=== PATIENT | female | born 1975 | race Caucasian/White ===

== ENCOUNTER → 2019-10-09 | Outpatient (CLI) | payer OTHER ==
[2019-10-09 19:00] LABS: Albumin 4.1 g/dL (3.80-4.90); Albumin/Globulin Ratio 1.17 (1.60-3.17); Bilirubin, Conjugated 1.3 mg/dL (0.20-0.40); Bilirubin,Unconjugated 0.5 mg/dL; Folate, Serum 12.2 ng/mL; Globulin 3.5 g/dL (1.6-3.3); Total Bilirubin 1.8 mg/dL (0.2-1.2); Total Protein 7.6 g/dL (6.2-8.2)
[2019-10-09 19:47] LABS: Hepatitis A Antibody IgM Non-Reactive (Non-Reactive); Hepatitis B Core IgM Non-Reactive (Non-Reactive); Hepatitis B Surface Antigen Non-Reactive (Non-Reactive); Hepatitis C IgG Antibody Non-Reactive (Non-Reactive)
== END | disposition home or self-care (01) ==
LOC: LABWHC1 11:03
PROVIDERS: ATTEND Internal Medicine
DX: N94.5 Secondary dysmenorrhea (principal); R19.03 Right lower quadrant abdominal swelling, mass and lump; R10.11 Right upper quadrant pain; F10.11 Alcohol abuse, in remission
CPT/HCPCS: 36415; 80074; 80076; 82607; 82746; 82947; 84443

== ENCOUNTER → 2019-10-20 | Outpatient (CLI) | payer OTHER ==
--- NOTE | 2019-10-20 09:25 | US ---
EXAMINATION TYPE: US abdomen complete DATE OF EXAM: 10/20/2019 COMPARISON: NONE CLINICAL HISTORY: R10.84 ABN PAIN. EXAM MEASUREMENTS: Liver Length: 14.7 cm Gallbladder Wall: 0.3 cm CBD: 0.3 cm Spleen: 11.1 cm Right Kidney: 12.5 x 4.3 x 5.8 cm Left Kidney: 12.4 x 5.2 x 6.6 cm Pancreas: wnl Liver: wnl Gallbladder: layering sludge noted Evidence for sonographic Baca's sign: No CBD: wnl Spleen: wnl Right Kidney: No hydronephrosis or masses seen Left Kidney: No hydronephrosis or masses seen Upper IVC: wnl Abd Aorta: wnl The liver is homogenous. The intrahepatic portion of the IVC and visualized abdominal aorta are with in normal limits. There is mobile nonshadowing gallbladder sludge and/or small stones. Common bile duct is unremarkable. The visualized portions of the pancreas are homogenous. The spleen is unremar kable. Kidneys are symmetric and free of hydronephrosis. No renal lesions are seen. IMPRESSION: Small stones and/or gallbladder sludge without secondary ultrasound evidence for acute ch olecystitis otherwise unremarkable study.
== END | disposition home or self-care (01) ==
LOC: RADUSWWP 08:16
PROVIDERS: ATTEND Internal Medicine
DX: R93.5 Abnormal findings on diagnostic imaging of other abdominal regions, including retroperitoneum (principal); R10.84 Generalized abdominal pain; R94.5 Abnormal results of liver function studies
CPT/HCPCS: 76700

== ENCOUNTER → 2020-06-24 | Outpatient (CLI) | payer OTHER ==
--- NOTE | 2020-06-24 10:10 | US ---
EXAMINATION TYPE: US abdomen complete DATE OF EXAM: 06/24/2020 COMPARISON: NONE CLINICAL HISTORY: K74.60 UNSPECIFIED CIRRHOSIS OF LIVER. Follow up. GB removed. EXAM MEASUREMENTS: Liver Length: 15.7 cm CBD: 0.7 cm Spleen: 12.4 cm Right Kidney: 11.9 x 5.5 x 4.4 cm Left Kidney: 12.4 x 4.9 x 5.1 cm Pancreas: appears echogenic in appearance Liver: Appears echogenic and coarse in appearance Gallbladder: Surgically absent Evidence for sonographic Baca's sign: No CBD: wnl Spleen: upper limits of normal in size Right Kidney: No hydronephrosis or masses seen Left Kidney: No hydronephrosis or masses seen Upper IVC: wnl Abd Aorta: No AAA visualized IMPRESSION: 1. Abdomen ultrasound appears unremarkable.
== END | disposition home or self-care (01) ==
LOC: RADUSWWP 07:40
PROVIDERS: ATTEND Internal Medicine
DX: K74.60 Unspecified cirrhosis of liver (principal)
CPT/HCPCS: 76700

== ENCOUNTER 2020-06-28 09:27 | Day surgery (SDC) | payer OTHER ==
[2020-06-23 14:08] VITALS: BMI 20.1
[~2020-06-28 09:27] MED LIST: LACTATED RINGERS 1,000 ML IV SCH; LIDOCAINE 1% (10MG/ML) FOR IV START INTRADERMA PRN
[2020-06-28 10:05] VITALS: TEMP 98.4
[2020-06-28] MEDS ORDERED: PROPOFOL 10 MG/ML 20 ML VIAL IV ONE (10:59)
--- NOTE | 2020-06-28 11:57 | P.PCN ---
Date of Procedure: 06/28/20 Description of Procedure: Brief history: Patient is a pleasant 44 female presents for outpatient EGD and colonoscopy for evaluation of cirrhosis, melena, blood per rectum. Patient has a known history of decompensated alcoholic cirrhosis. She has been sober since November 2019. She takes diuretic therapy and recently underwent ultrasound of the abdomen which was negative. She reports intermittent bright red blood per rectum. No prior upper GI bleed however. Procedure performed: Esophagogastroduodenoscopy with biopsy Colonoscopy Estimated blood loss: Minimal. Preoperative diagnosis: Cirrhosis, melena, blood per rectum Anesthesia: MAC Procedure: After informed consent was obtained from the patient was brought into the endoscopy unit and IV sedation was administered by anesthesia under continuous monitoring. Initially upper endoscopy was done. The Olympus GF 190 video endoscope was inserted into the mouth and esophagus intubated without any difficulty and was gradually advanced into the stomach and duodenum and carefully examined. The bulb and second part of the duodenum appeared normal and biopsies. The scope was then withdrawn into the stomach adequately insufflated with air and upon careful examination the antrum and body, cardia and fundus appeared normal, with mild punctate erythema throughout the stomach consistent with mild portal hypertensive gastropathy with biopsies taken of the antrum and body . The scope was then withdrawn into the esophagus. The GE junction was located at 40 cm to the incisors. It appeared regular with no erythema erosions or ulcerations. Rest of the esophagus appeared normal. Patient tolerated the procedure well. At this time the patient continued to remain sedation. Initial digital rectal examination was normal. Olympus CF 190 video colonoscope was then inserted into the rectum and gradually advanced to the cecum without any difficulty. Careful examination was performed as the scope was gradually being withdrawn. The prep was fair with liquid stool throughout the colon which was lavaged and suctioned. The cecum, ascending colon, transverse colon, descending colon, sigmoid colon and rectum appeared normal. Large pedunculated 17 mm sigmoid polyp was removed with hot snare polypectomy approximately 27 cm from the anal verge. Retroflexion was performed in the rectum and no lesions were noted. Patient tolerated the procedure well. Impression: 1. Mild portal hypertensive gastropathy. Biopsies of the duodenum, antrum and body. No varices noted. 2. Large pedunculated sigmoid polyp removed with hot snare polypectomy. Otherwise normal-appearing colon from rectum to cecum. Recommendations: Findings of this examination were discussed with the patient as well as her . Okay to resume diet. Okay to resume medications. Await pathology from polypectomy and biopsies. Repeat EGD in 2 years for variceal screening and colonoscopy in 3 years or high risk colon polyp pending pathology from polypectomy.
[2020-06-28 12:21] VITALS: BP 103/57; PULSE 80; RESP 16
== END 2020-06-28 12:43 | disposition home or self-care (01) ==
LOC: ORWHC2ENDO 09:27
PROVIDERS: ATTEND Internal Medicine
DX: K29.50 Unspecified chronic gastritis without bleeding (principal); C18.7 Malignant neoplasm of sigmoid colon; K70.30 Alcoholic cirrhosis of liver without ascites; F41.9 Anxiety disorder, unspecified; K76.6 Portal hypertension; K31.89 Other diseases of stomach and duodenum; Z98.51 Tubal ligation status; Z98.890 Other specified postprocedural states; Z79.891 Long term (current) use of opiate analgesic; Z79.899 Other long term (current) drug therapy
CPT/HCPCS: 81025; 88305; 84703; 45385; 43239; J2704

== ENCOUNTER 2020-07-07 19:32 | Observation (INO) | payer OTHER ==
[2020-07-07] MEDS ORDERED: SODIUM CHLORIDE 0.9% 1,000 ML IV STA (20:32)
[2020-07-07 21:18] LABS: ALT 39 U/L (4-34); AST 56 U/L (14-36); African American GFR (CKD) >90 (>60 ml/min/1.73 sqM); Albumin 4.4 g/dL (3.5-5.0); Alkaline Phosphatase 142 U/L (38-126); Anion Gap 12 mmol/L; Blood Urea Nitrogen 11 mg/dL (7-17); Calcium 10.4 mg/dL (8.4-10.2); Carbon Dioxide 22 mmol/L (22-30); Chloride 103 mmol/L (98-107); Glucose 126 mg/dL (74-99); Non-African American GFR(CKD) >90 (>60 ml/min/1.73 sqM); Sodium 137 mmol/L (137-145); Total Bilirubin 1.2 mg/dL (0.2-1.3); Total Protein 8.3 g/dL (6.3-8.2)
[2020-07-07 21:21] LABS: Basophils % (A) 0 %; Eosinophils # (A) 0.3 k/uL (0-0.7); Eosinophils % (A) 2 %; HCT 38.5 % (34.0-46.0); HGB 12.9 gm/dL (11.4-16.0); Lymphocytes # (A) 3.3 k/uL (1.0-4.8); Lymphocytes % (A) 27 %; MCH 31.4 pg (25.0-35.0); MCHC 33.5 g/dL (31.0-37.0); MCV 93.5 fL (80.0-100.0); Monocytes # (A) 0.8 k/uL (0-1.0); Monocytes % (A) 6 %; Neutrophils # (A) 7.8 k/uL (1.3-7.7); Neutrophils % (A) 63 %; Platelet Count 293 k/uL (150-450); RBC 4.11 m/uL (3.80-5.40); WBC 12.4 k/uL (3.8-10.6)
--- NOTE | 2020-07-07 21:48 | ED ---
GI Bleed HPI - General Chief complaint: GI Bleed Stated complaint: rectal bleed Time Seen by Provider: 07/07/20 20:22 Source: patient Mode of arrival: ambulatory Limitations: no limitations - History of Present Illness Initial comments: 44-year-old male presents to the emergency department with a chief complaint of a GI bleed. Patient reports about 9 days ago she had a colonoscopy and was found to have precancerous polyps. Patient reports she spoke to her GI specialist who advised to come for follow-up. Patient reports otherwise she has been doing well after the procedure. However, about 2 hours prior to arrival the patient noticed hematochezia. States she had multiple bouts of this. Station is going to the bathroom multiple times per hour. She feels like she is having diarrhea but this is profuse bleeding. She denies any abdominal pain and feels like her stomach is rumbling. Denies any chest pain back pain shortness of breath. Denies vaginal or urinary symptoms. - Related Data Home Medications Medication Instructions Recorded Confirmed Furosemide [Lasix] 40 mg PO BID 06/23/20 06/23/20 Lactulose 20 gm PO DAILY 06/23/20 06/23/20 Multivitamins, Thera [Multivitamin 1 tab PO DAILY 06/23/20 06/23/20 (formulary)] Spironolactone [Aldactone] 50 mg PO QAM 06/23/20 06/23/20 Zolpidem [Ambien] 5 mg PO HS PRN 06/23/20 06/28/20 diazePAM [Valium] 5 mg PO DIRECTED PRN 06/23/20 06/28/20 traMADol HCL [Ultram] 50 mg PO Q6HR PRN 06/23/20 06/28/20 Allergies Allergy/AdvReac Type Severity Reaction Status Date / Time No Known Allergies Allergy Verified 06/28/20 10:05 Review of Systems ROS Statement: Those systems with pertinent positive or pertinent negative responses have been documented in the HPI. ROS Other: All systems not noted in ROS Statement are negative. Past Medical History Past Medical History: No Reported History Additional Past Medical History / Comment(s): hx of blood in stool, states "liver issues" from alchohol use, hx of ascites and aspiration of 2L of fluid History of Any Multi-Drug Resistant Organisms: None Reported Past Surgical History: Breast Surgery, Tubal Ligation, Uterine Ablation Additional Past Surgical History / Comment(s): breast implants, hemorrhoidectomy, cystocele, colonoscopy with Polyp removal. Past Anesthesia/Blood Transfusion Reactions: Postoperative Nausea & Vomiting (PONV) Additional Past Anesthesia/Blood Transfusion Reaction / Comment(s): PONV only happened once after implants Past Psychological History: Anxiety, Depression Smoking Status: Former smoker Past Alcohol Use History: None Reported Past Drug Use History: Marijuana - Past Family History Mother Family Medical History: No Reported History General Exam Limitations: no limitations General appearance: alert, in no apparent distress Head exam: Present: atraumatic, normocephalic, normal inspection Eye exam: Present: normal appearance, PERRL, EOMI Pupils: Present: normal accommodation ENT exam: Present: normal exam, normal oropharynx, mucous membranes moist Neck exam: Present: normal inspection, full ROM. Absent: tenderness Respiratory exam: Present: normal lung sounds bilaterally. Absent: respiratory distress Cardiovascular Exam: Present: regular rate, normal rhythm, normal heart sounds GI/Abdominal exam: Present: soft. Absent: distended, tenderness, guarding, rebound Extremities exam: Present: normal inspection, full ROM. Absent: tenderness Back exam: Present: normal inspection, full ROM. Absent: tenderness Neurological exam: Present: alert, oriented X3, normal gait Psychiatric exam: Present: normal affect, normal mood Skin exam: Present: warm, dry, intact, normal color Course Vital Signs 07/07/20 07/07/20 07/07/20 19:41 21:15 21:20 Temperature 98.9 F 98.9 F Pulse Rate 114 H 110 H Respiratory 18 18 Rate Blood Pressure 160/87 129/88 O2 Sat by Pulse 100 100 99 Oximetry Procedures - [facility] Protocol (Time Out) Nurse: Martha Galarza Medical Decision Making - Medical Decision Making 44-year-old female presents to the emergency department with a chief complaint of rectal bleeding. On physical examination, no lower abdominal tenderness. CBC shows no signs of anemia. Lactate of 3.2. Troponin is negative. EKG showing sinus rhythm and no significant ST changes. Type and screen pending. Patient will be admitted for further medical management and consultation to GI. Patient is otherwise well-appearing with stable vitals. I spoke with Azucena Tavares NP who will admit for . Case discussed with Dr. Torres. GI on consult - Lab Data Result diagrams: 07/07/20 20:32 07/07/20 20:32 Lab Results 07/07/20 07/07/20 07/07/20 Range/Units 20:32 20:32 20:32 WBC 12.4 H (3.8-10.6) k/uL RBC 4.11 (3.80-5.40) m/uL Hgb 12.9 (11.4-16.0) gm/dL Hct 38.5 (34.0-46.0) % MCV 93.5 (80.0-100.0) fL MCH 31.4 (25.0-35.0) pg MCHC 33.5 (31.0-37.0) g/dL RDW 14.0 (11.5-15.5) % Plt Count 293 (150-450) k/uL MPV 8.0 Neutrophils % 63 % Lymphocytes % 27 % Monocytes % 6 % Eosinophils % 2 % Basophils % 0 % Neutrophils # 7.8 H (1.3-7.7) k/uL Lymphocytes # 3.3 (1.0-4.8) k/uL Monocytes # 0.8 (0-1.0) k/uL Eosinophils # 0.3 (0-0.7) k/uL Basophils # 0.0 (0-0.2) k/uL APTT 23.9 (22.0-30.0) sec Sodium 137 (137-145) mmol/L Potassium 3.0 L (3.5-5.1) mmol/L Chloride 103 (98-107) mmol/L Carbon Dioxide 22 (22-30) mmol/L Anion Gap 12 mmol/L BUN 11 (7-17) mg/dL Creatinine 0.55 (0.52-1.04) mg/dL Est GFR (CKD-EPI)AfAm >90 (>60 ml/min/1.73 sqM) Est GFR (CKD-EPI)NonAf >90 (>60 ml/min/1.73 sqM) Glucose 126 H (74-99) mg/dL Plasma Lactic Acid Rob (0.7-2.0) mmol/L Calcium 10.4 H (8.4-10.2) mg/dL Total Bilirubin 1.2 (0.2-1.3) mg/dL AST 56 H (14-36) U/L ALT 39 H (4-34) U/L Alkaline Phosphatase 142 H (38-126) U/L Troponin I (0.000-0.034) ng/mL Total Protein 8.3 H (6.3-8.2) g/dL Albumin 4.4 (3.5-5.0) g/dL 07/07/20 07/07/20 Range/Units 20:32 20:32 WBC (3.8-10.6) k/uL RBC (3.80-5.40) m/uL Hgb (11.4-16.0) gm/dL Hct (34.0-46.0) % MCV (80.0-100.0) fL MCH (25.0-35.0) pg MCHC (31.0-37.0) g/dL RDW (11.5-15.5) % Plt Count (150-450) k/uL MPV Neutrophils % % Lymphocytes % % Monocytes % % Eosinophils % % Basophils % % Neutrophils # (1.3-7.7) k/uL Lymphocytes # (1.0-4.8) k/uL Monocytes # (0-1.0) k/uL Eosinophils # (0-0.7) k/uL Basophils # (0-0.2) k/uL APTT (22.0-30.0) sec Sodium (137-145) mmol/L Potassium (3.5-5.1) mmol/L Chloride (98-107) mmol/L Carbon Dioxide (22-30) mmol/L Anion Gap mmol/L BUN (7-17) mg/dL Creatinine (0.52-1.04) mg/dL Est GFR (CKD-EPI)AfAm (>60 ml/min/1.73 sqM) Est GFR (CKD-EPI)NonAf (>60 ml/min/1.73 sqM) Glucose (74-99) mg/dL Plasma Lactic Acid Rob 3.2 H* (0.7-2.0) mmol/L Calcium (8.4-10.2) mg/dL Total Bilirubin (0.2-1.3) mg/dL AST (14-36) U/L ALT (4-34) U/L Alkaline Phosphatase (38-126) U/L Troponin I <0.012 (0.000-0.034) ng/mL Total Protein (6.3-8.2) g/dL Albumin (3.5-5.0) g/dL - EKG Data EKG Comments: Sinus tachycardia Ventricular rate 103, KS 130, QRS 86, QTC 458. Disposition Clinical Impression: Hematochezia Disposition: ADMITTED IP TO THIS HOSP Condition: Stable Is patient prescribed a controlled substance at d/c from ED?: No Referrals: Bradley Roberto MD [Primary Care Provider] - 1-2 days Time of Disposition: 22:12
[2020-07-07] MEDS ORDERED: ACETAMINOPHEN TAB 325 MG TAB PO PRN (22:07)
[2020-07-07] MEDS ORDERED: MORPHINE SULFATE 4 MG/ML SYRINGE IV PRN (22:07)
[2020-07-07] MEDS ORDERED: NALOXONE 0.4 MG/ML 1 ML VIAL IV PRN (22:07)
[2020-07-07] MEDS ORDERED: LORazepam 2 MG/ML INJ IV PRN (22:07)
[2020-07-07] MEDS ORDERED: traMADol 50 MG TAB PO PRN (22:07)
[2020-07-07] MEDS ORDERED: ONDANSETRON 4 MG/2 ML VIAL IVP PRN (22:07)
[2020-07-07] MEDS ORDERED: diazePAM 5 MG TAB PO STA (23:34)
[2020-07-07] MEDS: SODIUM CHLORIDE 0.9% 1,000 ML IV SCH (23:40)
[2020-07-08 01:40] VITALS: RESP 16
[2020-07-08 09:38] LABS: HCT 28.6 % (34.0-46.0); HGB 10.2 gm/dL (11.4-16.0); MCH 33.2 pg (25.0-35.0); MCHC 35.5 g/dL (31.0-37.0); MCV 93.4 fL (80.0-100.0); Mean Platelet Volume 7.7; RBC 3.06 m/uL (3.80-5.40); RDW 13.6 % (11.5-15.5); WBC 5.4 k/uL (3.8-10.6)
[2020-07-08 09:47] LABS: ALT 29 U/L (4-34); AST 34 U/L (14-36); African American GFR (CKD) >90 (>60 ml/min/1.73 sqM); Alkaline Phosphatase 99 U/L (38-126); Anion Gap 3 mmol/L; Blood Urea Nitrogen 10 mg/dL (7-17); Calcium 9.7 mg/dL (8.4-10.2); Carbon Dioxide 25 mmol/L (22-30); Chloride 110 mmol/L (98-107); Globulin 2.9 g/dL; Glucose 91 mg/dL (74-99); Non-African American GFR(CKD) >90 (>60 ml/min/1.73 sqM); Potassium 3.9 mmol/L (3.5-5.1); Sodium 138 mmol/L (137-145); Total Bilirubin 1.3 mg/dL (0.2-1.3); Total Protein 5.9 g/dL (6.3-8.2)
[2020-07-08 10:30] LABS: Platelet Count 139 k/uL (150-450)
[2020-07-08] MEDS ORDERED: NA PHOS,M-B/NA PHOS,DI-BA 133 ML ENEMA RECTAL STA (10:58)
[2020-07-08] MEDS ORDERED: NA PHOS,M-B/NA PHOS,DI-BA 133 ML ENEMA RECTAL ONE (11:45)
[2020-07-08] MEDS: SODIUM CHLORIDE 0.9% 1,000 ML IV SCH (12:02)
[2020-07-08] MEDS ORDERED: PROPOFOL 10 MG/ML 20 ML VIAL IV ONE (12:38)
[2020-07-08] MEDS ORDERED: IV FLUID CONTINUATION 1,000 ML IV ONE (12:41)
[2020-07-08 13:29] VITALS: BP 107/68; PULSE 80; TEMP 98.2
--- NOTE | 2020-07-08 14:12 | P.PCN ---
Date of Procedure: 07/08/20 Procedure(s) Performed: BRIEF HISTORY: Patient is a 44-year-old pleasant white female admitted hospital with acute lower GI bleed. She underwent a colonoscopy by Dr. Richardson 10 years ago and was noted to have a 2 cm pedunculated polyp in the distal sigmoid colon at 25 cm from the anal was there was removed by snare polypectomy. Biopsy revealed malignant polyp with no invasion. Yesterday she started having multiple episodes of bright red blood per rectum and had about 12 episodes and dropped hemoglobin from 12.9-10 g/dL. She is hence scheduled for a sigmoidoscopy to evaluate for post-polypectomy bleed. PROCEDURE PERFORMED: Flexible sigmoidoscopy with Endo Clip placement PREOPERATIVE DIAGNOSIS: For the post-polypectomy lower GI bleed. IV sedation per Anesthesia. PROCEDURE: After informed consent was obtained, the patient, was brought into the endoscopy unit. IV sedation was administered by Anesthesia under continuous monitoring. Digital rectal examination was normal. Initially the Olympus CF-160 flexible video colonoscope was then inserted in the rectum, gradually advanced into the splenic flexure without any difficulty. Careful examination was performed as the scope was gradually being withdrawn. Mucosa of the descending colon sigmoid colon, and rectum appeared normal. There was a post-polypectomy ulceration noted at 25 cm from the anal verge in the distal sigmoid colon with 2 small red spots but no active bleeding. At this time 2 endoclips were placed. The rectum appeared normal. Retroflexion was performed in the rectum and no lesions were seen. The patient tolerated the procedure well. IMPRESSION: Post-polypectomy ulcer in the distal sigmoid colon at 25 cm from the anal verge with 2 red spots but no active bleeding, status post Endo Clip placement as described above RECOMMENDATIONS: Findings of this examination were discussed with the patient . She'll be started on a clear liquid diet. She can be discharged home today. Outpatient follow-up in 2 weeks..
--- NOTE | 2020-07-08 15:20 | P.CONS ---
History of Present Illness - Reason for Consult Consult date: 07/08/20 Rectal bleeding, hematochezia - Chief Complaint Rectal bleeding - History of Present Illness This is a pleasant 44-year-old white female who presented to the emergency department with a chief complaint of a GI bleed. Her past medical history includes alcoholic cirrhosis of the liver, history of ascites, anxiety and depression. She reports having rectal bleeding that began yesterday afternoon around 3 or 4:00 in the afternoon lasting until 2 AM. She states the blood is bright red, moderate amounts approximately every 30 minutes. She is denying any abdominal pain or cramping. Denies any nausea or vomiting. She is status post EGD and colonoscopy with on 06/28/2020 for a history of cirrhosis of the liver and melena. EGD findings included mild portal hypertensive gastropath y, with no varices. Colonoscopy revealed a large pedunculated sigmoid polyp which was removed with hot snare polypectomy. Normal appearing colon from rectum to cecum. Biopsies did come back positive for adenocarcinoma with lamina propria via invasion, arising an adenoma. Margins negative for malignancy or high-grade dysplasia. Today she has had no further bleeding this morning, states she had a bowel movement around 7 AM which was soft and brown. Admission hemoglobin was 12.9, today hemoglobin 10.2. Review of Systems Gastrointestinal: Reports BRBPR, Reports hematochezia Past Medical History Past Medical History: Pneumonia Additional Past Medical History / Comment(s): hx of blood in stool, states "liver issues" from alchohol use, hx of ascites with aspiration of 2L of fluid, vericose vains History of Any Multi-Drug Resistant Organisms: None Reported Past Surgical History: Breast Surgery, Cholecystectomy, Tubal Ligation, Uterine Ablation Additional Past Surgical History / Comment(s): breast implants, hemorrhoidectomy, cystocele, colonoscopy with Polyp removal, currently has small spot of skin cancer on her nose. Past Anesthesia/Blood Transfusion Reactions: Postoperative Nausea & Vomiting (PONV) Additional Past Anesthesia/Blood Transfusion Reaction / Comm: PONV only happened once after implants Past Psychological History: Anxiety, Depression Smoking Status: Former smoker Past Alcohol Use History: None Reported Additional Past Alcohol Use History / Comment(s): states was drinking daily until Nov 2020 when quit drinking, quit smoking 2008, smoked intermittently 5 yrs. Past Drug Use History: Marijuana Additional Drug Use History / Comment(s): occasional use, instructed to hold 24 hrs prior to procedure - Past Family History Mother Family Medical History: No Reported History Father Additional Family Medical History / Comment(s): father passed, parkinsons Medications and Allergies Home Medications Medication Instructions Recorded Confirmed Type Furosemide [Lasix] 40 mg PO DAILY@1600 06/23/20 07/07/20 History Lactulose 20 gm PO DAILY@0730,1600 06/23/20 07/07/20 History Multivitamins, Thera [Multivitamin 1 tab PO DAILY@1200 06/23/20 07/07/20 History (formulary)] Spironolactone [Aldactone] 50 mg PO DAILY@0730 06/23/20 07/07/20 History Zolpidem [Ambien] 5 mg PO HS 06/23/20 07/07/20 History diazePAM [Valium] 5 mg PO DAILY PRN 06/23/20 07/07/20 History traMADol HCL [Ultram] 50 mg PO DAILY PRN 06/23/20 07/07/20 History Allergies Allergy/AdvReac Type Severity Reaction Status Date / Time No Known Allergies Allergy Verified 07/07/20 22:23 Physical Exam Vitals: Vital Signs Temp Pulse Pulse Resp BP BP Pulse Ox 07/08/20 13:28 98.2 F 80 16 107/68 100 07/08/20 07:31 98.3 F 84 16 106/64 100 07/08/20 00:20 16 07/07/20 23:55 98.4 F 91 15 123/77 98 07/07/20 22:45 98.1 F 07/07/20 22:30 84 20 106/69 99 07/07/20 22:00 92 20 116/77 99 07/07/20 21:30 100 18 129/88 99 07/07/20 21:20 98.9 F 110 H 18 129/88 99 07/07/20 21:15 100 07/07/20 19:41 98.9 F 114 H 18 160/87 100 Intake and Output 07/07/20 07/08/20 07/08/20 22:59 06:59 14:59 Intake Total 200 Balance 200 Intake: IV 200 Other: Voiding Method Toilet # Voids 2 Weight 53.07 kg 53.07 kg General appearance: The patient is alert, oriented, appears in no acute distress. HET: Head is normocephalic and atraumatic. Conjunctiva pink. Sclera anicteric. Neck: Supple without lymphadenopathy. Abdomen: Soft, nontender, nondistended with bowel sounds. No guarding or rigidity. Extremities: Normal skin color and turgor. No pedal edema Skin: No rashes, no jaundice Neurological: No focal deficits. Alert and oriented 3. Results CBC & Chem 7: 07/08/20 09:09 07/08/20 09:09 Labs: Abnormal Lab Results - Last 24 Hours (Table) 07/07/20 07/07/20 07/07/20 Range/Units 20:32 20:32 20:32 WBC 12.4 H (3.8-10.6) k/uL RBC (3.80-5.40) m/uL Hgb (11.4-16.0) gm/dL Hct (34.0-46.0) % Plt Count (150-450) k/uL Neutrophils # 7.8 H (1.3-7.7) k/uL Potassium 3.0 L (3.5-5.1) mmol/L Chloride (98-107) mmol/L Creatinine (0.52-1.04) mg/dL Glucose 126 H (74-99) mg/dL Plasma Lactic Acid Rob 3.2 H* (0.7-2.0) mmol/L Calcium 10.4 H (8.4-10.2) mg/dL AST 56 H (14-36) U/L ALT 39 H (4-34) U/L Alkaline Phosphatase 142 H (38-126) U/L Total Protein 8.3 H (6.3-8.2) g/dL Albumin (3.5-5.0) g/dL 07/08/20 07/08/20 Range/Units 09:09 09:09 WBC (3.8-10.6) k/uL RBC 3.06 L (3.80-5.40) m/uL Hgb 10.2 L (11.4-16.0) gm/dL Hct 28.6 L (34.0-46.0) % Plt Count 139 L D (150-450) k/uL Neutrophils # (1.3-7.7) k/uL Potassium (3.5-5.1) mmol/L Chloride 110 H (98-107) mmol/L Creatinine 0.50 L (0.52-1.04) mg/dL Glucose (74-99) mg/dL Plasma Lactic Acid Rob (0.7-2.0) mmol/L Calcium (8.4-10.2) mg/dL AST (14-36) U/L ALT (4-34) U/L Alkaline Phosphatase (38-126) U/L Total Protein 5.9 L (6.3-8.2) g/dL Albumin 3.0 L (3.5-5.0) g/dL Assessment and Plan (1) Hematochezia Narrative/Plan: Is a 44-year-old female who presented to the emergency department with complaint s of bright red blood per rectum that began yesterday afternoon lasting to approximately 2 AM. She states she had multiple episodes approximately every 30 minutes with small to moderate amounts of bleeding. She is status post EGD and colonoscopy which was performed on 06/28/[address] Richardson for history of cirrhosis of the liver and melena. EGD showed mild portal hypertensive gastropathy with no varices. Colonoscopy findings included large pedunculated sigmoid polyp which was removed with hot snare polypectomy. Otherwise normal- appearing colon from rectum to cecum. Biopsy did come back as adenocarcinoma with lamina propria invasion, arising in an adenoma. Margins negative for malignancy or high-grade dysplasia. Admission hemoglobin 12.9 with a drop to 10.2. She has had no further rectal bleeding since this morning. Will proceed with fleets enema 2 and flexible sigmoidoscopy. Current Visit: Yes Status: Acute Code(s): K92.1 - MELENA SNOMED Code(s): 100642121 Plan: 1. Supportive care 2. Fleets enema 2 3. Will proceed with flexible sigmoidoscopy 4. Patient may have clear liquids 5. Patient may be discharged home from a gastroenterology standpoint, discussed with patient she needs to stay on clear liquid diet 48 hours 6. Patient to follow-up with Dr. Richardson Thank you for this consultation Dr. Sebastián Noriega I agree with the dictator's note, documented as a scribe by Virginia Mustafa.
== END 2020-07-08 15:17 | disposition home or self-care (01) ==
LOC: EC 19:32 → 4SSUR 22:06
PROVIDERS: ADMIT Internal Medicine; ATTEND Internal Medicine
DX: K63.3 Ulcer of intestine (principal); K92.2 Gastrointestinal hemorrhage, unspecified; K92.1 Melena; F41.9 Anxiety disorder, unspecified; F32.9 Major depressive disorder, single episode, unspecified; K70.31 Alcoholic cirrhosis of liver with ascites; C44.301 Unspecified malignant neoplasm of skin of nose; Z90.49 Acquired absence of other specified parts of digestive tract; Z98.82 Breast implant status; Z87.01 Personal history of pneumonia (recurrent); Z85.828 Personal history of other malignant neoplasm of skin; Z87.891 Personal history of nicotine dependence; Z79.899 Other long term (current) drug therapy; Z79.891 Long term (current) use of opiate analgesic; Z20.822 Contact with and (suspected) exposure to COVID-19; Z82.0 Family history of epilepsy and other diseases of the nervous system
CPT/HCPCS: 96374; 96361; 99285; 36415; 93005; 86900; 86901; 80053 ×2; 83605; 84484; 85025; 85027; 85730; 86850; 81025; 87635; 45334; G0378 ×2; J2060

== ENCOUNTER 2020-10-18 09:50 | Day surgery (SDC) | payer OTHER ==
[2020-10-13 09:57] VITALS: BMI 19.1
[~2020-10-18 09:50] MED LIST changes: -LIDOCAINE 1% (10MG/ML) FOR IV START INTRADERMA PRN
[2020-10-18 10:34] VITALS: RESP 16; TEMP 97.7
[2020-10-18] MEDS ORDERED: PROPOFOL 10 MG/ML 20 ML VIAL IV ONE (10:49)
--- NOTE | 2020-10-18 11:48 | P.PCN ---
Date of Procedure: 10/18/20 Description of Procedure: BRIEF HISTORY: Patient is a 44-year-old female presenting for colonoscopy for evaluation of malignant neoplasm of the colon. The patient previously underwent colonoscopy on 07/08/20 with findings of a large pedunculated sigmoid polyp with complete polypectomy and pathology significant for adenocarcinoma of the colon with no findings of submucosal invasion, invasion into the stalk or lymphovascular invasion and with moderately differentiated features. No acute complaints since that time. PROCEDURE PERFORMED: Colonoscopy. PREOPERATIVE DIAGNOSIS: Malignant neoplasm of the colon, last colonoscopy 06/2020. ESTIMATED BLOOD LOSS: Minimal. IV sedation per Anesthesia. PROCEDURE: After informed consent was obtained, the patient, was brought into the endoscopy unit. IV sedation was administered by Anesthesia under continuous monitoring. Digital rectal examination was normal. Initially the Olympus CF-190 flexible video colonoscope was then inserted in the rectum, gradually advanced into the cecum without any difficulty. Careful examination was performed as the scope was gradually being withdrawn. Ileocecal valve and the appendiceal orifice were visualized and appeared normal. Prep was excellent. Mucosa of the cecum, ascending colon, transverse colon, descending colon, sigmoid colon, and rectum appeared normal. Retroflexion was performed in the rectum and no lesions were seen, with low-grade internal hemorrhoids noted. The patient tolerated the pro cedure well. IMPRESSION: Normal-appearing colon from rectum to cecum. Internal hemorrhoids. RECOMMENDATIONS: Findings of this examination were discussed with the patient and her . Okay to resume diet. Okay to resume medications. Follow-up in GI clinic as previously scheduled for continuing management. Repeat colonoscopy in 1 year for history of malignant neoplasm of the colon.
[2020-10-18 12:01] VITALS: BP 107/72; PULSE 64
== END 2020-10-18 12:24 | disposition home or self-care (01) ==
LOC: ORWHC2ENDO 09:50
PROVIDERS: ATTEND Internal Medicine
DX: Z12.11 Encounter for screening for malignant neoplasm of colon (principal); K64.8 Other hemorrhoids; Z85.038 Personal history of other malignant neoplasm of large intestine; Z98.890 Other specified postprocedural states; Z90.49 Acquired absence of other specified parts of digestive tract; Z98.51 Tubal ligation status; Z79.891 Long term (current) use of opiate analgesic; Z79.899 Other long term (current) drug therapy
CPT/HCPCS: 81025; J2704; G0105; 45378

== ENCOUNTER → 2021-01-05 | Outpatient (CLI) | payer OTHER ==
[2021-01-05 21:51] LABS: Basophils # (A) 0.02 X 10*3/uL (0.00-0.10); Basophils % (A) 0.3 %; Eosinophils # (A) 0.12 X 10*3/uL (0.04-0.35); HCT 40.4 % (37.2-46.3); HGB 13.7 g/dL (12.0-15.0); Lymphocytes # (A) 1.94 X 10*3/uL (0.90-5.00); MCH 32.1 pg (27.0-32.0); MCHC 33.9 g/dL (32.0-37.0); MCV 94.6 fL (80.0-97.0); Mean Platelet Volume 11.1 fL (9.5-12.2); Monocytes # (A) 0.42 X 10*3/uL (0.20-1.00); Monocytes % (A) 6.9 %; Neutrophils # (A) 3.55 X 10*3/uL (1.80-7.70); Neutrophils % (A) 58.6 %; Platelet Count 175 X 10*3/uL (140-440); RBC 4.27 X 10*6/uL (4.10-5.20); RDW 13.7 % (11.5-14.5); WBC 6.06 X 10*3/uL (4.50-10.00)
[2021-01-06 00:55] LABS: INR 1.1 (0.90-1.11); Prothrombin Time 11.9 sec (9.9-11.9)
[2021-01-06 04:05] LABS: African American GFR (CKD) 101.8 (60.0-200.0); Albumin 4.3 g/dL (3.80-4.90); Albumin/Globulin Ratio 1.54 (1.60-3.17); Calcium 10.4 mg/dL (8.7-10.3); Globulin 2.8 g/dL (1.6-3.3); Non-African American GFR(CKD) 87.8 (60.0-200.0); Potassium 4.7 mmol/L (3.5-5.5); Total Bilirubin 0.9 mg/dL (0.3-1.2); Total Protein 7.1 g/dL (6.2-8.2)
== END | disposition home or self-care (01) ==
LOC: LABWHC1 12:47
PROVIDERS: ATTEND Internal Medicine Gastroenterology
DX: K74.60 Unspecified cirrhosis of liver (principal)
CPT/HCPCS: 36415; 80053; 82140; 85025; 85610

== ENCOUNTER → 2021-04-14 | Outpatient (CLI) | payer OTHER ==
--- NOTE | 2021-04-14 09:28 | US ---
EXAMINATION TYPE: US abdomen complete DATE OF EXAM: 04/14/2021 COMPARISON: Prior ultrasound June 24, 2020 CLINICAL HISTORY: K70.30 Alcoholic cirrhosis of liver. cirrhosis. follow up. cholecystectomy EXAM MEASUREMENTS: Liver Length: 14.3 cm Gallbladder Wall: Surgically absent CBD: 0.3 cm Spleen: 10.2 cm Right Kidney: 11.7 x 4.4 x 5.1 cm Left Kidney: 11.8 x 5.3 x 4.6 cm Pancreas: wnl Liver: appears wnl Gallbladder: Surgically absent Evidence for sonographic Baca's sign: no CBD: appears wnl Spleen: wnl Right Kidney: no evidence of hydronephrosis Left Kidney: no evidence of hydronephrosis Upper IVC: wnl Abd Aorta: wnl The visualized liver appears fairly homogeneous on current study. The intrahepatic portion of the IV C and visualized abdominal aorta are within normal limits. Gallbladder is surgically absent. Common bile duct is unremarkable. The visualized portions of the pancreas are homogenous. The spleen is un remarkable. Kidneys are symmetric and free of hydronephrosis. No renal lesions are seen. IMPRESSION: No worrisome new intrahepatic mass or intrahepatic ductal dilatation. No new ascites.
== END | disposition home or self-care (01) ==
LOC: RADUSWWP 08:40
PROVIDERS: ATTEND Internal Medicine Gastroenterology
DX: K70.30 Alcoholic cirrhosis of liver without ascites (principal)
CPT/HCPCS: 76700

== ENCOUNTER → 2022-07-16 | Outpatient (CLI) | payer OTHER ==
--- NOTE | 2022-07-16 08:25 | US ---
EXAMINATION TYPE: US abdomen complete DATE OF EXAM: 07/16/2022 COMPARISON: Prior ultrasound April 14, 2021 CLINICAL HISTORY: R18.8 OTHER ASCITES. Patient states having a hx of ascites x a few years. Patient states her abdomen feels enlarged. TECHNIQUE: Multiple sonographic images of the abdomen are obtained. FINDINGS: EXAM MEASUREMENTS: Liver Length: 12.5 cm CBD: 0.5 cm Spleen: 12.1 cm Right Kidney: 12.1 x 6.0 x 4.0 cm Left Kidney: 11.8 x 5.0 x 5.4 cm Pancreas: wnl Liver: Coarse and heterogenous Gallbladder: Surgically absent Evidence for sonographic Baca's sign: neg CBD: wnl Spleen: wnl Right Kidney: Medial anechoic lesion at hilum = 1.2 x 0.8 cm Left Kidney: Medial anechoic lesion at hilum = 1.8 x 1.2 cm Upper IVC: wnl Abd Aorta: No AAA visualized at time of scan The visualized liver remains heterogeneously hyperechoic. Evaluation for focal masses suboptimal due to the heterogeneity. No adjacent ascites. The intrahepatic portion of the IVC and visualized abdomin al aorta are within normal limits. There is no evidence of cholelithiasis. Common bile duct is unre markable. The visualized portions of the pancreas are homogenous. The spleen is upper limits of nor mal in size. Kidneys are symmetric and free of hydronephrosis. Technologist nevarez vague small hypoec hoic and anechoic lesions in both kidneys. Solid mass is not entirely excluded though unlikely. Consi luis manuel cross-sectional renal protocol CT or MRI to definitively exclude. IMPRESSION: Heterogeneous hyperechoic appearance of liver consistent with known hepatocellular disea se remains present. No new ascites.
== END | disposition home or self-care (01) ==
LOC: RADUSWWP 07:35
PROVIDERS: ATTEND Internal Medicine Gastroenterology
DX: R18.8 Other ascites (principal)
CPT/HCPCS: 76700